=== PATIENT | male | born 1960 | race Caucasian/White ===

== ENCOUNTER 2017-12-25 07:44 | Day surgery (SDC) | payer BC ==
[~2017-12-25] VITALS: Ht 185.4 cm; Wt 85.7 kg
[~2017-12-25 07:44] MED LIST: ASPIRIN EC81 MG PO; HYDROCHLOROTHIA25 MG PO; HYDROCODON-ACE1 EA10 PO; IPRATROPIUM BRO30 ML NAS; KLOR-CON 1010 MEQ PO; METOPROLOL SUC100 MG PO; POTASSIUM CHLO10 MEQ PO; ZESTRIL40 MG PO
[2017-12-25] MEDS ORDERED: FIBER0.52 GM PO (08:02)
--- NOTE | 2017-12-25 09:48 | NUR ---
12/25/17 0948 Regina Dillon 0922 PT ARRIVED TO PACU DROWSY, RESP EVEN AND UNLABORED.
--- NOTE | 2017-12-25 16:45 | OR ---
[facility] [address] [place], [place] [address] Signed DATE OF OPERATION: 12/25/2017 SURGEON: Yomaira Chan MD PREOPERATIVE DIAGNOSES: 1. Rectal bleeding. 2. Internal and external hemorrhoids. 3. Diverticulosis. 4. Personal history of hyperplastic polyps. 5. Brother with colon cancer at age 45. 6. Father and mother with colon polyps. POSTOPERATIVE DIAGNOSES: 1. Tggcjxt-hn-kjwgufvq pandiverticulosis. 2. Ykbvyxh-wm-exxeulze internal hemorrhoids. 3. Moderate indurated external hemorrhoids, left greater than right. PROCEDURE: Colonoscopy without biopsy. ESTIMATED BLOOD LOSS: None. INDICATIONS: Cristhian is a 57-year-old gentleman, whom we know previously. His brother had colon cancer at age 45. Both his mother and father had colonic polyps removed. We know Cristhian has hyperplastic polyps in the past along with diverticulosis and fairly significant internal and external hemorrhoids. He has continued to have some rectal bleeding a little more so than usual. Consequently, he was asked to come see me a year early for a followup colonoscopy. I met with Cristhian in the office, I gave him a pamphlet on colonoscopy. We reviewed the nature of the test along with the risks including, but not limited to gas bloating, crampy abdominal pain, bleeding, perforation, requiring surgery, and missed diagnosis. We also discussed the need for IV conscious sedation. He had expressed understanding and wished to proceed. PROCEDURE NOTE: Cristhian was taken into our endoscopy suite and placed in the left lateral decubitus position. He was given 5 mg of Versed and 100 mcg of fentanyl to cover the case. A digital rectal exam was performed and as always he has moderate indurated external hemorrhoids. The left is greater than the right. In the left lateral position, this is Electronically Signed By: YOMAIRA CHAN MD 12/25/17 1645 PATIENT NAME: GRETTA BROWNING OPERATIVE REPORT DATE OF : 56 REPORT #: [id number] PHYSICIAN: YOMAIRA CHAN MD PCP: Leonor SCHMID MD REPORT IS CONFIDENTIAL AND NOT TO BE RELEASED WITHOUT AUTHORIZATION [facility] [address] [place], [place] [address] Signed most dominant external hemorrhoid. It is irritated near the apex and I suspect this is one of bleeds from time to time. He has good sphincter tone. The prostate was a little indurated, but otherwise fine. The adult colonoscope was then introduced and advanced all around into the cecum under direct visualization of camera without difficulty. His prep was good. The scope was then slowly withdrawn. He does have bicamut-zm-dxfmmgrr pandiverticulosis. Otherwise, no polyps in the colon or rectum. Upon retroflexion of the scope, we can see he has mmuovet-ev-gzghljrl internal hemorrhoid columns. After this, the gas was suctioned out and the colonoscope removed. Cristhian tolerated the procedure quite well. RECOMMENDATIONS: Cristhian can follow up in my office in 5 years for repeat colonoscopy. He is more than welcome to return sooner if he would like to discuss this hemorrhoids once again. Yomaira Chan MD ALB/MODL /[id number] cc: MD Ian Bryson MD Copies: YOMAIRA CHAN MD, JONATHAN MD ~ Electronically Signed By: YOMAIRA CHAN MD 12/25/17 1645 PATIENT NAME: GRETTA BROWNING OPERATIVE REPORT DATE OF : 56 REPORT #: [id number] PHYSICIAN: YOMAIRA CHAN MD PCP: Leonor SCHMID MD REPORT IS CONFIDENTIAL AND NOT TO BE RELEASED WITHOUT AUTHORIZATION
== END 2017-12-25 09:58 | disposition home or self-care (01) ==
LOC: OPS 07:44 → DS 07:44 → OPS 09:00 → DS 09:00 → OPS 09:58
PROVIDERS: Colon & Rectal Surgery
PROC: 0DJD8ZZ Inspection of Lower Intestinal Tract, Via Natural or Artificial Opening Endoscopic (ICD-10-PCS; principal; 2017-12-25 09:00)
DX: K64.4 Residual hemorrhoidal skin tags (principal); K64.8 Other hemorrhoids; K57.30 Diverticulosis of large intestine without perforation or abscess without bleeding; Z87.891 Personal history of nicotine dependence; Z79.899 Other long term (current) drug therapy
CPT/HCPCS: 99153; G0500; J2250; J3010; J7120

== ENCOUNTER 2019-03-24 10:48 | Day surgery (SDC) | payer BC ==
[~2019-03-24] VITALS: Ht 185.4 cm; Wt 85.3 kg
[~2019-03-24 10:48] MED LIST changes: +FIBER0.52 GM PO; +INDOMETHACIN50 MG PO; +SUDOGEST120 MG PO
--- NOTE | 2019-03-26 11:40 | PATH ---
[facility] [address] [facility] [place], [place] [address] Signed SPECIMEN(S): A BONE MARROW - CORE SPECIMEN(S): B BONE MARROW - ASPIRATION SPECIMEN(S): C COMPREHENSIVE FLOW CYTOMETRY, BM EDTA CLINICAL HISTORY: 59-year-old man with pancytopenia. DIAGNOSIS SUMMARY: A. Peripheral blood: - Mild normochromic, normocytic anemia. - Mild leukopenia. B. Bone marrow, aspirate, clot section, and core biopsy: - Normocellular marrow (30%) with trilineage hematopoiesis. - Adequate iron stores without ring sideroblasts. - See Diagnostic Comment. DIAGNOSTIC COMMENT: In summary, the bone marrow is normocellular for age (30%) and demonstrates progressive maturation of myeloids and erythroids. No overt dysplasia is appreciated, and blasts are not increased. The overall findings are nonspecific and the differential is broad and includes drugs/toxin effect, infection, autoimmune disease, vitamin/essential nutrient deficiency, and a subtle myelodysplastic syndrome. To evaluate for the possibility of a low grade myelodysplastic syndrome, karyotype studies will be performed and results reported in an addendum. Of note, flow cytometry demonstrates a minute population of B-cells (1% of all events) expressing CD5 with a very slight kappa skew (kappa:lambda ratio of 3.4:1). A CD20 immunohistochemical stain performed on the bone marrow only shows scattered small B-cells (<5%). The flow finding is of uncertain significance and is not diagnostic of a B-cell lymphoproliferative disorder. If there is concern for B-cell lymphoproliferative disorder, such as a monoclonal B-cell lymphocytosis, flow cytometry may be performed on subsequent specimens (e.g. peripheral blood). [facility]:smn:C2NR PERIPHERAL BLOOD: HEMOGRAM (03/24/2019): WBC 3.4 K/uL, RBC 4.07 M/uL, HGB 13.3 g/dL, HCT 39.6%, MCV 97.4 fL, MCH 33 pg, MCHC 34 g/dL, RDW 12.2%, PLT 186 K/uL. PATIENT NAME: GRETTA BROWNING PATHOLOGY DATE OF : 56 REPORT #: [id number] PHYSICIAN: ALBERT PATHOLOGY PCP: LM OWENS PA-C REPORT IS CONFIDENTIAL AND NOT TO BE RELEASED WITHOUT AUTHORIZATION [facility] [address] [place], [place] [address] Signed MANUAL DIFFERENTIAL COUNT (100 cells): Segmented neutrophils 56%, lymphocytes 29%, monocytes 10%, eosinophils 5%. The red cells are slightly decreased in number and are normochromic and normocytic. Anisopoikilocytosis is not prominent. Polychromasia is not increased. Leukocytes are slightly reduced in number and demonstrate normal morphology. Neutrophils appear granular and demonstrate normal lobation. Lymphocytes are small and mature, and are without significant atypia. Circulating blasts are not appreciated. Platelets are present in adequate number and show normal morphology. BONE MARROW: BONE MARROW ASPIRATE SMEAR: The bone marrow aspirate smears demonstrate adequate cellular spicules. Myeloids are present in adequate number and show full spectrum maturation. Erythroids are present in adequate number and show full spectrum maturation. No significant dysplasia is appreciated in the myeloids or erythroids. Blasts are not increased. Megakaryocytes are present in adequate number and show normal morphology. MANUAL DIFFERENTIAL COUNT (200 cells): Blasts 0.5%, promyelocytes 2%, myelocytes 10.5%, metamyelocytes 10.5%, segs/bands 21%, erythroids 30.5%, lymphocytes 18.5%, plasma cells 2%, monocytes 2%, eosinophils 1.5%. BONE MARROW CORE BIOPSY AND ASPIRATE CLOT SECTION CELL BLOCK: The bone marrow core biopsy measures 1.6 cm in length and shows marrow with an average cellularity of 30%, which is normocellular for age. Myeloids are present in adequate number and demonstrate full spectrum maturation. Erythroids are present in adequate number and show full spectrum maturation. The M:E ratio is estimated to be approximately 2:1. Scattered megakaryocytes are seen which show normal morphology. No significant clustering of megakaryocytes is seen. Blasts are not increased. Trabecular bone is normal. SPECIAL STAINS: - Iron stain (aspirate smear): Adequate iron stores, no ring sideroblasts. - Reticulin stain (block B1, with adequate external positive control): No increase in reticulin fibrosis (MF-0 of 3). IMMUNOHISTOCHEMICAL STAINS: - CD34: No increase in blasts, very rare cells staining. - CD71: Positive in erythroid precursors. - MPO: Positive in myeloid precursors. - CD20: Highlights a few scattered interstitial B-cells, small in size (less PATIENT NAME: GRETTA BROWNING PATHOLOGY DATE OF : 56 REPORT #: [id number] PHYSICIAN: ALBERT PATHOLOGY PCP: LM OWENS PA-C REPORT IS CONFIDENTIAL AND NOT TO BE RELEASED WITHOUT AUTHORIZATION [address] [address] Signed than 5% of marrow cellularity). - Cyclin D1: Rare cells staining. - SOX11: Negative. [facility]:smn FLOW CYTOMETRY: Bone marrow, flow cytometry: - No increase in blasts. - No monotypic B-cell or aberrant T-cell population identified. - See Comment. COMMENT: Flow cytometry of this bone marrow specimen demonstrates no increase in CD34 or CD117 positive blasts, and no evidence of a monotypic B-cell population or aberrant T-cell population. A minor subset of the B-cells (1% of all events) express CD5 and demonstrate a very slight kappa skew (kappa:lambda ratio of 3.4:1). This finding is of uncertain significance. Full interpretation of these results requires correlation with morphologic and clinical findings. FLOW CYTOMETRY ANALYSIS: FLOW DIFFERENTIAL (% Total CD45 vs. SSC gating): Myeloid 71%; Lymphoid 13%; Monocyte 3%; Dim CD45/Blast: 1.7%. Cell Count: 5.4 x 10*3/uL. POPULATION ANALYSIS: BLASTS: Analysis of the dim CD45 gate demonstrates 1.1% myeloblasts by CD34/CD117 and 0.7% hematogones. LYMPHOID CELLS: The lymphocyte gate comprises 13% of total events and includes 61% T-cells with a CD4:CD8 ratio of 1.9:1 and normal curry T-cell antigen expression. 25% of lymphocytes are B-cells. A small kappa biased B-cell subset is detected (5% of lymphocytes, 1% of total events) expressing CD45 MOD, CD19 MOD, CD20 DIM-MOD, CD5 MOD, KAPPA DIM-MOD (biased) while negative for CD10, CD23, CD38 and FMC7. The remainders are NK-cells. MYELOID CELLS: The myeloid population comprises 71% of the total events. No aberrant or immature immunophenotypic expression is detected. MONOCYTES: The monocyte population comprises 3% of the total events. Monocytes are not increased. No aberrant immunophenotypic expression is detected. PLASMA CELLS: 0.5% plasma cells are detected in the screening gate neg-dimCD45/CD38. Plasma cells are CD45 dim and positive for CD19. ANTIBODIES USED: KAPPA, LAMBDA, CD20, CD10, CD19, CD23, CD38, FMC7, CD16, CD56, CD8, CD5, CD2, PATIENT NAME: GRETTA BROWNING PATHOLOGY DATE OF : 56 REPORT #: [id number] PHYSICIAN: ALBERT PATHOLOGY PCP: LM OWENS PA-C REPORT IS CONFIDENTIAL AND NOT TO BE RELEASED WITHOUT AUTHORIZATION [facility] [address] [place] [id number] Signed CD4, CD7, CD3, CD14, CD33, CD13, HLADR, CD34, CD117, CD15, CD45: TOTAL ANTIBODIES USED: 24. JLR FINAL DIAGNOSIS PERFORMED BY: Sylvie Zapata MD, Mar 25 2019 3:54PM CYTOGENETICS: Pending, to be reported by addendum. GROSS DESCRIPTION: A. The specimen, labeled and designated "Nova, core," is received in formalin and consists of a 1.6 x 0.3 x 0.3 cm, red-brown bony core which is placed into a mesh bag and entirely submitted in (A1) following decalcification in Immunocal. B. The specimen, labeled and designated "Nova, clot," is received in formalin and consists of a 1.9 x 1.5 x 0.3 cm aggregate of red-brown clotted material which is filtered into a mesh bag and entirely submitted in (B1). jw:KUSH:jaylen ADDITIONAL NOTES: Immunohistochemical and/or in situ hybridization studies were performed on this case with the appropriate positive controls that react as expected. This test was developed and its performance characteristics determined by [facility]. It has not been cleared or approved by the U.S. Food and Drug Administration. The FDA has determined that such clearance or approval is not necessary. This test is used for clinical purposes. It should not be regarded as investigational or for research. [facility] is certified under the Clinical Laboratory Improvement Amendments of 1988 (CLIA) as qualified to perform high complexity clinical laboratory testing. In this case, certain antibodies were performed by both immunohistochemistry and flow cytometry analysis because flow cytometry analysis did not fully explain all the light microscopic findings. Immunohistochemistry aided in the analysis. Both methods are deemed medically necessary in this case. This test was developed and its performance characteristics determined by [facility]. It has not been cleared or approved by the US Food and Drug Administration. The FDA does not require this test to go through premarket FDA review. This test is used for clinical purposes. It should not be regarded as investigational or for research. This PATIENT NAME: GRETTA BROWNING PATHOLOGY DATE OF : 56 REPORT #: [id number] PHYSICIAN: ALBERT PATHOLOGY PCP: LM OWENS PA-C REPORT IS CONFIDENTIAL AND NOT TO BE RELEASED WITHOUT AUTHORIZATION [address] [address] Signed laboratory is certified under the Clinical Laboratory Improvement Amendments (CLIA) as qualified to perform high complexity clinical laboratory testing. PERFORMING LABORATORY: Professional interpretation was performed by [facility], [address] [facility] [place] [address] (Manager Of Engineering: Zeferino Oconnor Jr., M.D., [facility]; CLIA#: [id number]). Professional interpretation was performed by [facility] [employer], [address] [facility] [place] [address] (Manager Of Engineering: Zeferino Oconnor Jr., M.D., [facility]; CLIA#: [id number]). IMAGES: [id number]: [id number]: [id number] Diagnostician: Sylvie Zapata MD Pathologist Electronically Signed 03/26/2019 Copies: ~ PATIENT NAME: GRETTA BROWNING PATHOLOGY DATE OF : 56 REPORT #: [id number] PHYSICIAN: ALBERT CASTAÑEDA PCP: LM OWENS PA-C REPORT IS CONFIDENTIAL AND NOT TO BE RELEASED WITHOUT AUTHORIZATION
== END 2019-03-24 13:15 | disposition home or self-care (01) ==
LOC: DS 10:48 → OPS 10:48 → DS 12:00 → OPS 13:15
PROVIDERS: Specialist
PROC: 079T3ZX Drainage of Bone Marrow, Percutaneous Approach, Diagnostic (ICD-10-PCS; 2019-03-24)
PROC: 07DR3ZX Extraction of Iliac Bone Marrow, Percutaneous Approach, Diagnostic (ICD-10-PCS; principal; 2019-03-24 12:00)
DX: D72.819 Decreased white blood cell count, unspecified (principal); D61.818 Other pancytopenia; D64.9 Anemia, unspecified; I10 Essential (primary) hypertension; E78.5 Hyperlipidemia, unspecified; M10.9 Gout, unspecified; Z79.899 Other long term (current) drug therapy
CPT/HCPCS: 85025; 99153; G0500; J2250; J3010; J7120

== ENCOUNTER 2024-09-01 05:52 | Day surgery (SDC) | payer BC ==
[2024-08-25 09:53] VITALS: BP 104/69
[~2024-09-01] VITALS: Ht 185.4 cm; Wt 83.2 kg
[~2024-09-01 05:52] MED LIST changes: +COLCRYS0.6 MG PO; +IPRATROPIUM BRO15 ML NAS; -IPRATROPIUM BRO30 ML NAS; +MIDAZOLAM HCL 5 MG/5 ML VIAL IV PRN; +SUDAFED 12 HOU120 MG PO; +WARFARIN SODIU7.5 MG PO; +WARFARIN SODIUM5 MG PO; +fentaNYL citrate 100 MCG/2 ML VIAL IV PRN
[2024-09-01 06:04] VITALS: BP 133/91
[2024-09-01] MEDS ORDERED: LIDOCAINE HCL 1% 5 ML SDV INJ ONE (07:00)
[2024-09-01] MEDS ORDERED: IBLOOD GLUCOSE TEST STRIP 1 EA TEST VI PRN (07:00)
[2024-09-01] MEDS ORDERED: LACTATED RINGER'S 1,000 ML IV SCH (07:00)
--- NOTE | 2024-09-01 07:40 | NUR ---
PT NOT AVAILABLE FOR VISIT. PROVIDED PRAYER.
[2024-09-01] MEDS ORDERED: propofoL 200 MG/20 ML VIAL ONE (07:51)
[2024-09-01] MEDS ORDERED: ePHEDrine sulfate 50 MG/ML AMP ONE (07:52)
[2024-09-01] MEDS ORDERED: METOPROLOL TARTRATE 5 MG/5 ML VIAL IV SCH (08:15)
[2024-09-01] MEDS ORDERED: LIDOCAINE HCL 2% 5 ML SDV ONE (08:37)
--- NOTE | 2024-09-01 08:41 | OR ---
[facility] [address] [place], [place] [address] Signed DATE OF OPERATION: 09/01/2024 SURGEON: Yomaira Chan MD PREOPERATIVE DIAGNOSES: 1. Brother with colon cancer, age 45. 2. Mom and dad with colonic polyps. 3. Personal history of hyperplastic colonic polyps. 4. Chronic intermittent rectal bleeding. 5. Diverticulosis. 6. Moderate internal and external hemorrhoids. POSTOPERATIVE DIAGNOSES: 1. Minimal to moderate sigmoid diverticulosis. 2. Moderate internal and external hemorrhoids. PROCEDURE: Colonoscopy without biopsy. ESTIMATED BLOOD LOSS: None. INDICATIONS: Cristhian is a 64-year-old gentleman, asked to see me for followup colonoscopy. This will be his sixth colonoscopy. His brother was diagnosed with colon cancer at age 45. He of other reasons. His mother and father both had colonic polyps removed. Cristhian started colonoscopies in 2001 at the age of 41 [address] Linus Ramírez. He talks about chronic intermittent rectal bleeding that he associates with his moderate internal external hemorrhoids. His initial colonoscopy was negative. He has always done well with Versed and fentanyl in the past. I helped him in 2005 at the age of 45, 2008 at the age of 50, 2013 at the age of 54 and in 2018 at the age of 57. He has had some hyperplastic polyps removed. He also has some diverticulosis. He does have the moderate internal and external hemorrhoids. He said he has been doing about the same. He did develop atrial fibrillation a few months ago. He has been on Coumadin. He is still waiting to see the mineralogy professor. He said he cut his alcohol way down since he has been on Coumadin. He was drinking 4 to 5 glasses every night involving wine. He is now down to a couple of glasses a couple of times a week. 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 He said he has no lower GI complaints. In the office, I gave him our brochure on colonoscopy. He is well aware of that test. There is risk including, but not limited to gas bloating, crampy abdominal Electronically Signed By: YOMAIRA CHAN MD 09/01/24 0841 PATIENT NAME: GRETTA BROWNING OPERATIVE REPORT DATE OF : 56 REPORT #: [id number] PHYSICIAN: YOMAIRA CHAN MD PCP: BAILEY OWENS PA-C REPORT IS CONFIDENTIAL AND NOT TO BE RELEASED WITHOUT AUTHORIZATION [facility] [address] [place] [id number] Signed pain, bleeding, perforation requiring surgery, and missed diagnosis. We also reviewed the written instructions for the bowel prep line by line. It is the same bowel prep he has taken five previous times. Interestingly, he did not seem to have much recall of the bowel prep. I marked the prep to hold Coumadin 4 days prior to the procedure. He did do that. He is welcome to take his other medications. I also explained to him with his new onset atrial fibrillation and his decreased functional status we really need monitored anesthesia care with propofol infusion for his safety. In that regard, he needed preoperative blood work and an EKG. As expected, he was in AFib this morning. He had expressed understanding and wished to proceed. DESCRIPTION OF PROCEDURE: Cristhian was taken into our endoscopy suite and placed in the left lateral decubitus position. He was given monitored anesthesia care propofol infusion per our nurse management developer. A digital rectal exam was performed. Once again, he has circumferential moderate-sized external hemorrhoids. He had good sphincter tone. No masses. I could just touch the bottom of his prostate. It is quite indurated and enlarged. The left seems more prominent than the right. The adult colonoscope was introduced and advanced all the way around into the cecum under direct visualization of camera. It took just a little bit of abdominal compression to get the scope in the cecum. As always, he had a good prep. The scope was then slowly withdrawn. We took several pictures throughout for photodocumentation. We could easily see the cecum and the ileocecal valve. Once again, he has a few diverticula in the sigmoid colon. They were small in size, few in number and scattered about. The rectum was unremarkable. Upon retroflexion of scope he does have moderate internal hemorrhoids. After this the gas was suctioned out, colonoscope removed. Cristhian tolerated the procedure quite well. RECOMMENDATIONS: Cristhian can follow up in 5 years for repeat colonoscopy due to his family history. He can resume his medications today including the Coumadin. I encouraged him to follow up with the mineralogy professor for his new onset atrial fibrillation. Yomaira Chan MD ALB/MODL /[id number] Electronically Signed By: YOMAIRA CHAN MD 09/01/24 0841 PATIENT NAME: GRETTA BROWNING OPERATIVE REPORT DATE OF : 56 REPORT #: [id number] PHYSICIAN: YOMAIRA CHAN MD PCP: BAILEY OWENS PA-C REPORT IS CONFIDENTIAL AND NOT TO BE RELEASED WITHOUT AUTHORIZATION [address] [place], [place] [address] Signed cc: MD Bailey Bryson PA-C Copies: YOMAIRA CHAN MD, CHLOE K PA-C ~ Electronically Signed By: YOMAIRA CHAN MD 09/01/24 0841 PATIENT NAME: GRETTA BROWNING OPERATIVE REPORT DATE OF : 56 REPORT #: [id number] PHYSICIAN: YOMAIRA CHAN MD PCP: BAILEY OWENS PA-C REPORT IS CONFIDENTIAL AND NOT TO BE RELEASED WITHOUT AUTHORIZATION
[2024-09-01 09:27] VITALS: BP 112/89
--- NOTE | 2024-09-01 09:39 | NUR ---
09/01/24 0939 Aleida Alcantara 0754 PT ARRIVED IN PACU SLEEPY. ABD SOFT. HR IN 160'S ON ARRIVAL. 0810 PT AWAKE WITH NO C/O'S. 0815 DR AT BEDSIDE AND AWARE OF INCREASED HR. INSTRUCTED TO TALK WITH ANESTHESIA. 0817 NEW ORDERS RECEIVED. 0820 LOPRESSOR 5MG GIVEN IV. 0825 HR IN 100'S. WENT TO GET NEXT DOSE OF LOPRESSOR AND OUT IN PYXIS. TC TO PHARMACY TO REFILL. 0835 LOPRESSOR REFILLED IN PYXIS. HR IN 100'S. SPOKE WITH ANESTHESIA AND OK TO DC NEXT 2 DOSES AND DC PT HOME. 0840 DRINKING WATER AND VISITING WITH STAFF. DC INSTRUCTIONS GIVEN. ALL QUESTIONS ANSWERED. 0850 GETTING DRESSED. 0853 LEFT VIA W/C WITH INSTRUCTIONS TO TAKE HOME MEDICATIONS WHEN HOME.
--- NOTE | 2024-09-01 22:55 | EKG ---
[facility] [address] [facility] [place] [address] Signed Atrial fibrillation with rapid ventricular response Nonspecific ST abnormality Abnormal ECG When compared with ECG of 25-AUG-2024 08:59, ST now depressed in Lateral leads Confirmed by Mike Doe MD () on 09/01/2024 10:55:01 PM Electronically Signed By: MIKE DOE MD 09/01/24 2255 PATIENT NAME: GRETTA BROWNING Electrocardiogram DATE OF : 56 PHYSICIAN: MIKE DOE MD REPORT #: [id number] REPORT IS CONFIDENTIAL AND NOT TO BE RELEASED WITHOUT AUTHORIZATION
== END 2024-09-01 08:53 | disposition home or self-care (01) ==
LOC: DS 05:52
PROVIDERS: ATTEND Colon & Rectal Surgery
PROC: 0DJD8ZZ Inspection of Lower Intestinal Tract, Via Natural or Artificial Opening Endoscopic (ICD-10-PCS; principal; 2024-09-01 07:30)
DX: Z12.11 Encounter for screening for malignant neoplasm of colon (principal); K57.30 Diverticulosis of large intestine without perforation or abscess without bleeding; K64.8 Other hemorrhoids; K64.4 Residual hemorrhoidal skin tags; Z80.0 Family history of malignant neoplasm of digestive organs; Z83.719 Family history of colon polyps, unspecified; Z86.0100 Personal history of colon polyps, unspecified; I48.91 Unspecified atrial fibrillation; I10 Essential (primary) hypertension; E78.5 Hyperlipidemia, unspecified; R25.1 Tremor, unspecified; R74.01 Elevation of levels of liver transaminase levels; M10.9 Gout, unspecified; Z79.01 Long term (current) use of anticoagulants; Z79.899 Other long term (current) drug therapy
CPT/HCPCS: 00811; 93005; 93010; J2003; J2704; J7121

== ENCOUNTER 2025-05-11 10:17 | Emergency (ER) | payer BC, OTHER ==
[~2025-05-11] VITALS: Ht 185.4 cm; Wt 83.2 kg
[~2025-05-11 10:17] MED LIST changes: -MIDAZOLAM HCL 5 MG/5 ML VIAL IV PRN; +WARFARIN SODIU2.5 MG PO; -fentaNYL citrate 100 MCG/2 ML VIAL IV PRN
[2025-05-11] MEDS ORDERED: SUCCINYLCHOLINE IN 0.9% NACL 200 MG/10 ML SYRINGE IV ONE (10:30)
[2025-05-11] MEDS ORDERED: LORazepam 2 MG/ML VIAL IV ONE ×5 (10:30→11:15)
[2025-05-11] MEDS ORDERED: ETOMIDATE 40 MG/20 ML VIAL IV ONE (10:30)
[2025-05-11] MEDS ORDERED: LORazepam 2 MG/ML VIAL ONE ×4 (10:31→10:54)
[2025-05-11 10:50] LABS: BASOPHILS 0.3 % (0.2-1.2); EOSINOPHILS 0.1 % (0.8-7.0); LYMPHOCYTES 7.3 % (21.8-53.1); MCH 32.3 PG (25.7-32.2); MCHC 33.4 g/dL (32.3-36.5); MCV 96.6 fL (79.0-92.2); MONOCYTES 8.1 % (5.3-12.2); NEUTROPHILS 83.5 % (34.0-67.9); RBC 3.25 M/uL (4.63-6.08)
[2025-05-11] MEDS ORDERED: SODIUM CHLORIDE 0.9% 50 ML IV PRN ×2 (11:00→12:00)
[2025-05-11] MEDS ORDERED: HUMAN PROTHROMBIN COMPLX(PCC) 500 UNIT/20 ML VIAL IV ONE ×2 (11:00→12:00)
[2025-05-11] MEDS ORDERED: PHYTONADIONE 10 MG in SODIUM CHLORIDE 0.9% 50 ML IV ONE (11:00)
[2025-05-11 11:24] LABS: ALT (SGPT) 21.0 U/L (14-59); AST (SGOT) 21.0 U/L (15-37); GLOMERULAR FILTRATION RATE,EST 63.0 mL/min (>60); PROTEIN, TOTAL 7.4 g/dL (6.4-8.2); UREA NITROGEN 18.0 mg/dL (7-18)
[2025-05-11 11:31] LABS: BASE EXCESS, BLOOD GAS -5.5 mmol/L (-2-2); HCO3, BLOOD GAS 20.1 mmol/L (22-26); O2 SATURATION, BLOOD GAS 95.2 % (95.0-100.0); OXYGEN RECEIVED, BLOOD GAS 60%; PCO2, BLOOD GAS 38.8 mmHg (35-45); PH, BLOOD GAS 7.32 (7.35-7.45); PO2, BLOOD GAS 80 mmHg (80-100); TOTAL CO2, BLOOD GAS 21.3
[2025-05-11 11:36] LABS: PROTIME 97.1 Sec (11.2-14.2)
[2025-05-11 11:38] LABS: INR 13.39 (0.80-1.30)
[2025-05-11 12:13] LABS: AMPHETAMINES, URINE NEGATIVE (NEGATIVE); BARBITURATES, URINE NEGATIVE (NEGATIVE); BENZODIAZEPINE, URINE POSITIVE (NEGATIVE); CANNABINOID, URINE NEGATIVE (NEGATIVE); COCAINE, URINE NEGATIVE (NEGATIVE); ECSTASY, URINE NEGATIVE (NEGATIVE); FENTANYL, URINE NEGATIVE (NEGATIVE); METHADONE, URINE NEGATIVE (NEGATIVE); OPIATES, URINE NEGATIVE (NEGATIVE); OXYCODONE, URINE NEGATIVE (NEGATIVE); PHENCYCLIDINE, URINE NEGATIVE (NEGATIVE)
[2025-05-11 12:38] VITALS: BP 87/69
--- NOTE | 2025-05-13 21:49 | EKG ---
[facility] [address] [facility] [place] [address] Signed Atrial fibrillation with rapid ventricular response Nonspecific ST abnormality Abnormal ECG When compared with ECG of 01-SEP-2024 05:03, Nonspecific T wave abnormality, worse in Inferior leads Confirmed by Mike Doe MD () on 05/13/2025 9:49:35 PM Electronically Signed By: MIKE DOE MD 05/13/25 2149 PATIENT NAME: GRETTA BROWNING Electrocardiogram DATE OF : 56 PHYSICIAN: MIKE ODE MD REPORT #: [id number] REPORT IS CONFIDENTIAL AND NOT TO BE RELEASED WITHOUT AUTHORIZATION
== END 2025-05-11 12:35 | disposition short-term general hospital (02) ==
LOC: ED 10:17
PROVIDERS: Emergency Medicine
DX: S06.30AA Unspecified focal traumatic brain injury with loss of consciousness status unknown, initial encounter (principal); S60.212A Contusion of left wrist, initial encounter; I48.91 Unspecified atrial fibrillation; I10 Essential (primary) hypertension; Z79.01 Long term (current) use of anticoagulants; W06.XXXA Fall from bed, initial encounter; Z87.891 Personal history of nicotine dependence
CPT/HCPCS: 31500; 36415; 36600; 51702; 70450; 70496; 70498; 71045; 72125; 73110; 80053; 80307; 82803; 84484; 85025; 85610; 85730; 93005; 93010; 94799; 96374; 96375; 96376; 99285-25; G0480; J0330; J1953; J2060; J2251; J2405; J2704; J3430; J7168; Q9967